=== PATIENT | male | born 1950 | race Caucasian/White ===

== ENCOUNTER 2024-09-17 10:26 | Inpatient (IN) | payer OTHER ==
[2024-09-17] MEDS ORDERED: ACETAMINOPHEN INJECTION 100 ML ONE (11:02)
[2024-09-17] MEDS: LACTATED RINGERS SOLUTION 1000 ML INFUS.BAG IV ONE ×2 (11:55→14:05)
[2024-09-17] MEDS: ACETAMINOPHEN 1000 MG/100 ML BAG IVPB ONE (11:55)
[2024-09-17 12:22] LABS: HEMATOCRIT 40.6 % (35.4-49); HEMOGLOBIN 13.2 GM/dL (11.7-16.9); MCH 30.9 pg (25.7-33.7); MCHC 32.6 g/dl (32.0-35.9); MEAN CELL VOLUME 94.8 fl (80-96); MEAN PLT VOLUME 8.1 fl (7.5-11.1); PLATELET COUNT 139 10^3/uL (134-434); RBC 4.28 M/mm3 (4.00-5.60); RDW 14.3 % (11.9-15.9); WHITE BLOOD COUNT 16.1 K/mm3 (4.0-10.0)
[2024-09-17 12:23] LABS: INR 1.05 (0.83-1.09); PROTHROMBIN TIME (PATIENT) 11.9 SEC (9.7-13.0)
[2024-09-17 12:25] LABS: ACTIVATED PTT 26.4 SECONDS (25.2-36.5)
[2024-09-17 12:33] LABS: POTASSIUM 3.9 mmol/L (3.5-5.1)
[2024-09-17 12:35] LABS: ALBUMIN 3.6 g/dl (3.4-5.0); CALCIUM 9.2 mg/dL (8.5-10.1)
[2024-09-17 12:36] LABS: BLOOD UREA NITROGEN 20.3 mg/dL (7-18); MAGNESIUM 1.7 mg/dL (1.8-2.4)
[2024-09-17 12:39] LABS: CREATININE 1.8 mg/dL (0.55-1.3); PHOSPHOROUS 1.8 mg/dL (2.5-4.9)
[2024-09-17 12:40] LABS: BILIRUBIN,TOTAL 0.6 mg/dL (0.2-1); TOT PROT 6.6 g/dl (6.4-8.2)
[2024-09-17 12:49] LABS: ANISOCYTOSIS 0; MACROCYTOSIS 0
[2024-09-17] MEDS ORDERED: MAGNESIUM SULFATE IN WATER 2 GM/50 ML IVPB IVPB ONE (13:10)
[2024-09-17] MEDS: MAGNESIUM SULFATE IN WATER 2 GM/50 ML IVPB IVPB ONE (13:13)
[2024-09-17 17:01] LABS: EPI CELLS 14 /uL (0-25.1); HYALINE CASTS 0 /uL (0-3.1); URINE APPEARANCE CLEAR; URINE BACTERIA >9,000 /uL (0-1359); URINE BILIRUBIN NEGATIVE (NEGATIVE); URINE COLOR YELLOW; URINE GLUCOSE (UA) NEGATIVE (NEGATIVE); URINE KETONE NEGATIVE (NEGATIVE); URINE LEUK ESTERASE TRACE (NEGATIVE); URINE NITRITE NEGATIVE (NEGATIVE); URINE PROTEIN NEGATIVE (NEGATIVE); URINE RBC 11 /uL (0-23.9); URINE UROBILINOGEN 0.2 mg/dL (0.2-1.0); URINE WBC 39 /uL (0-25.8)
[2024-09-17] MEDS: PIPERACILLIN/TAZOB 2.25 GM 2.25 GM in DEXTROSE 5%-WATER - 50 ML IVPB ONE (17:40)
[2024-09-17] MEDS: PIPERACILLIN/TAZOB 2.25 GM 2.25 GM/50 ML BAG IVPB ONE (17:45)
[2024-09-17] MEDS: LACTATED RINGERS SOLUTION 1,000 ML/1,000 ML INFUS.BAG IV SCH (17:55)
[2024-09-17] MEDS ORDERED: DOCUSATE SODIUM 100 MG CAPSULE (FP) PO PRN (20:13)
[2024-09-17] MEDS: PIPERACILLIN/TAZOB 3.375 GM 3.375 GM in DEXTROSE 5%-WATER - 50 ML IVPB SCH (22:15)
[2024-09-17] MEDS ORDERED: ACETAMINOPHEN 1000 MG/100 ML BAG IVPB PRN ×2 (23:43→23:45)
[2024-09-18 00:10] VITALS: BMI 26.4
[2024-09-18] MEDS ORDERED: PIPERACILLIN/TAZOB 3.375 GM 3.375 GM in DEXTROSE 5%-WATER - 50 ML IVPB SCH (01:00)
[2024-09-18] MEDS: levETIRAcetam 500 MG TABLET (FP) PO SCH (01:04)
[2024-09-18] MEDS: MIRTAZAPINE 15 MG TABLET (FP) PO SCH (01:04)
[2024-09-18 06:56] LABS: BASO % 0.1 % (0-2.0); EOS % 0.3 % (0-4.5); HEMATOCRIT 34.5 % (35.4-49); HEMOGLOBIN 11.4 GM/dL (11.7-16.9); LYMPH % 7.2 % (8-40); MCH 30.9 pg (25.7-33.7); MEAN CELL VOLUME 93.5 fl (80-96); MEAN PLT VOLUME 8.4 fl (7.5-11.1); MONO % 5.7 % (3.8-10.2); NEUT % 86.7 % (42.8-82.8); PLATELET COUNT 118 10^3/uL (134-434); RBC 3.69 M/mm3 (4.00-5.60); WHITE BLOOD COUNT 15.1 K/mm3 (4.0-10.0)
[2024-09-18 07:11] LABS: POTASSIUM 3.7 mmol/L (3.5-5.1)
[2024-09-18 07:14] LABS: CALCIUM 8.4 mg/dL (8.5-10.1)
[2024-09-18 07:15] LABS: BLOOD UREA NITROGEN 19.9 mg/dL (7-18); MAGNESIUM 2.3 mg/dL (1.8-2.4)
[2024-09-18 07:18] LABS: CREATININE 1.3 mg/dL (0.55-1.3)
[2024-09-18 07:19] LABS: BILIRUBIN,TOTAL 0.7 mg/dL (0.2-1)
[2024-09-18 07:24] LABS: TOT PROT 5.4 g/dl (6.4-8.2)
[2024-09-18 07:31] LABS: ALBUMIN 2.9 g/dl (3.4-5.0)
[2024-09-18] MEDS: CLOPIDOGREL BISULFATE 75 MG TABLET (FP) PO SCH (09:24)
[2024-09-18] MEDS: TAMSULOSIN HCL 0.4 MG CAP PO SCH (09:24)
[2024-09-18] MEDS: PANTOPRAZOLE 40 MG TABLET PO SCH (09:24)
[2024-09-18] MEDS: ASPIRIN COATED 81 MG TABLET.EC PO SCH (09:34)
[2024-09-18] MEDS ORDERED: HEPARIN NA (PORCINE) 5,000 UNITS/ML 1ML VIAL SQ SCH (14:00)
[2024-09-18] MEDS: PIPERACILLIN/TAZOB 3.375 GM 50 ML IVPB SCH (17:20)
[2024-09-18] MEDS: ATORVASTATIN CA 40 MG TABLET (FP) PO SCH (22:41)
[2024-09-19 08:35] LABS: BASO % 0.2 % (0-2.0); EOS % 1.5 % (0-4.5); HEMOGLOBIN 12.9 GM/dL (11.7-16.9); LYMPH % 14.5 % (8-40); MCH 31.2 pg (25.7-33.7); MEAN CELL VOLUME 94.3 fl (80-96); MEAN PLT VOLUME 8.5 fl (7.5-11.1); MONO % 9.2 % (3.8-10.2); NEUT % 74.6 % (42.8-82.8); PLATELET COUNT 124 10^3/uL (134-434); RBC 4.13 M/mm3 (4.00-5.60); RDW 14.2 % (11.9-15.9); WHITE BLOOD COUNT 10.3 K/mm3 (4.0-10.0)
[2024-09-19 09:03] LABS: POTASSIUM 4.1 mmol/L (3.5-5.1)
[2024-09-19 09:23] LABS: BLOOD UREA NITROGEN 15.6 mg/dL (7-18); CALCIUM 9.3 mg/dL (8.5-10.1)
[2024-09-19 09:24] LABS: ALBUMIN 3.1 g/dl (3.4-5.0)
[2024-09-19 09:25] LABS: CREATININE 1.1 mg/dL (0.55-1.3)
[2024-09-19 09:27] LABS: TOT PROT 6.2 g/dl (6.4-8.2)
[2024-09-19 09:29] LABS: BILIRUBIN,TOTAL 0.4 mg/dL (0.2-1)
[2024-09-19] MEDS: CEFTRIAXONE 1 G/50 ML PREMIX 50 ML IVPB SCH (15:04)
[2024-09-19] MEDS ORDERED: DOCUSATE SODIUM 100 MG CAPSULE (FP) PO PRN (18:49)
[2024-09-19] MEDS: LACTATED RINGERS SOLUTION 1,000 ML/1,000 ML INFUS.BAG IV SCH (21:14)
[2024-09-19] MEDS: levETIRAcetam 500 MG TABLET (FP) PO SCH (21:15)
[2024-09-19] MEDS: ATORVASTATIN CA 40 MG TABLET (FP) PO SCH (21:15)
[2024-09-19] MEDS: MIRTAZAPINE 15 MG TABLET (FP) PO SCH (21:15)
[2024-09-20 09:21] LABS: BASO % 0.2 % (0-2.0); EOS % 1.6 % (0-4.5); HEMATOCRIT 38.5 % (35.4-49); HEMOGLOBIN 13.2 GM/dL (11.7-16.9); MCH 31.8 pg (25.7-33.7); MCHC 34.3 g/dl (32.0-35.9); MEAN CELL VOLUME 92.5 fl (80-96); MEAN PLT VOLUME 8.5 fl (7.5-11.1); MONO % 9.7 % (3.8-10.2); NEUT % 70.5 % (42.8-82.8); PLATELET COUNT 157 10^3/uL (134-434); RBC 4.16 M/mm3 (4.00-5.60); RDW 13.9 % (11.9-15.9); WHITE BLOOD COUNT 8.6 K/mm3 (4.0-10.0)
[2024-09-20 09:33] LABS: CALCIUM 9.8 mg/dL (8.5-10.1)
[2024-09-20 09:34] LABS: ALBUMIN 3.4 g/dl (3.4-5.0); BLOOD UREA NITROGEN 14.7 mg/dL (7-18)
[2024-09-20 09:37] LABS: BILIRUBIN,TOTAL 0.4 mg/dL (0.2-1); TOT PROT 6.6 g/dl (6.4-8.2)
[2024-09-20] MEDS: CEFTRIAXONE 1 G/50 ML PREMIX 50 ML IVPB SCH (10:42)
[2024-09-20] MEDS: PANTOPRAZOLE 40 MG TABLET PO SCH (10:42)
[2024-09-20] MEDS: TAMSULOSIN HCL 0.4 MG CAP PO SCH (10:42)
[2024-09-20] MEDS: CLOPIDOGREL BISULFATE 75 MG TABLET (FP) PO SCH (10:42)
[2024-09-20] MEDS: ASPIRIN COATED 81 MG TABLET.EC PO SCH (10:42)
[2024-09-21 05:58] VITALS: TEMP 97.7
[2024-09-21 09:43] VITALS: BP 167/72; PULSE 61; RESP 17
== END 2024-09-21 14:40 | disposition home or self-care (01) | DRG 872 ==
LOC: JER 10:26 → JERBED 14:26 → J4W 20:22 → J5S 09-19 18:46
PROVIDERS: ADMIT Student in an Organized Health Care Education/Training Program; ATTEND Internal Medicine
DX: A41.9 Sepsis, unspecified organism (principal); N39.0 Urinary tract infection, site not specified; I69.354 Hemiplegia and hemiparesis following cerebral infarction affecting left non-dominant side; N17.9 Acute kidney failure, unspecified; G40.909 Epilepsy, unspecified, not intractable, without status epilepticus; C61 Malignant neoplasm of prostate; E78.5 Hyperlipidemia, unspecified
CPT/HCPCS: 0241U-QW; 36415; 70450-TC; 71045-TC-FY; 74176-TC; 76700-TC; 80053; 81003; 82550; 82962; 83690; 83735; 84100; 84484; 85025; 85610; 85730; 86850; 86900; 86901; 87040; 87086; 87186; 93005; 93010; 93306-TC; 99285-25; J0131

== ENCOUNTER 2025-01-05 14:59 | Emergency (ER) | payer OTHER ==
[2025-01-05 15:13] VITALS: TEMP 98.5; BMI 25.1
[2025-01-05 16:50] LABS: BASO % 0.4 % (0-2.0); EOS % 1.8 % (0-4.5); HEMATOCRIT 39.7 % (35.4-49); HEMOGLOBIN 13.6 GM/dL (11.7-16.9); LYMPH % 16.6 % (8-40); MCH 31.7 pg (25.7-33.7); MCHC 34.2 g/dl (32.0-35.9); MEAN CELL VOLUME 92.6 fl (80-96); MEAN PLT VOLUME 7.6 fl (7.5-11.1); MONO % 5.7 % (3.8-10.2); NEUT % 75.5 % (42.8-82.8); PLATELET COUNT 176 10^3/uL (134-434); RBC 4.29 M/mm3 (4.00-5.60); RDW 14.8 % (11.9-15.9); WHITE BLOOD COUNT 6.2 K/mm3 (4.0-10.0)
[2025-01-05 17:17] LABS: POTASSIUM 4.4 mmol/L (3.5-5.1)
[2025-01-05 17:19] LABS: CALCIUM 9.1 mg/dL (8.5-10.1)
[2025-01-05 17:20] LABS: ALBUMIN 3.9 g/dl (3.4-5.0); BLOOD UREA NITROGEN 17.5 mg/dL (7-18)
[2025-01-05 17:22] LABS: CREATININE 1.2 mg/dL (0.55-1.3)
[2025-01-05 17:24] LABS: BILIRUBIN,TOTAL 0.5 mg/dL (0.2-1); TOT PROT 6.8 g/dl (6.4-8.2)
[2025-01-05] MEDS ORDERED: ACETAMINOPHEN 325 MG TABLET (FP) ONE ×2 (18:11→19:02)
[2025-01-05] MEDS ORDERED: LIDOCAINE 4% PATCH TP ONE (18:11)
[2025-01-05 18:14] LABS: HIV INTERPRETATION NEGATIVE (NEGATIVE)
[2025-01-05] MEDS ORDERED: LIDOCAINE 5% TOPICAL PATCH ONE (19:03)
[2025-01-05] MEDS: LIDOCAINE 5% TOPICAL PATCH TP ONE (19:09)
[2025-01-05] MEDS: ACETAMINOPHEN 500 MG TABLET (FP) PO ONE (19:10)
[2025-01-05 21:39] VITALS: BP 118/61; PULSE 62; RESP 18
[2025-01-05] MEDS ORDERED: LIDOCAINE PATCH REMOVAL MC SCH (22:00)
== END 2025-01-05 21:39 | disposition home or self-care (01) ==
LOC: JER 14:59
DX: M54.2 Cervicalgia (principal); M25.511 Pain in right shoulder; R20.2 Paresthesia of skin; R07.89 Other chest pain
CPT/HCPCS: 36415; 71046-TC-FY; 72125-TC; 80053; 84484; 85025; 86803; 87389; 93005; 93010; 99285-25

== ENCOUNTER 2025-04-08 21:02 | Inpatient (IN) | payer OTHER ==
[2025-04-08 22:21] LABS: ABSOLUTE IMMATURE GRANULOCYTES 0.02 x10^3/uL (0.0-0.031); BASOPHILS # 0.01 x10^3/uL (0.01-0.08); EOSINOPHIL % 1.8 % (0.8-7.0); EOSINOPHILS # 0.13 x10^3/uL (0.04-0.54); HEMATOCRIT 39.6 % (40.1-51.0); HEMOGLOBIN 13.4 g/dL (13.7-17.5); MCHC 33.8 g/dl (32.3-36.5); MEAN CELL VOLUME 92.1 fl (79.0-92.2); MEAN PLT VOLUME 9.7 fl (9.4-12.4); MONOCYTE # 0.38 x10^3/uL (0.30-0.82); MONOCYTE % 5.3 % (5.3-12.2); PLATELET COUNT 203 x10^3/uL (163-337); RDW 13.8 % (12.2-16.6)
[2025-04-08 22:30] LABS: INR 1.11 (0.83-1.09); PROTHROMBIN TIME (PATIENT) 12.1 SEC (9.7-13.0)
[2025-04-08 22:32] LABS: ACTIVATED PTT 28.8 SECONDS (25.2-36.5)
[2025-04-08 22:38] LABS: PH,URINE 6.5 (5.0-8.0); URINE APPEARANCE CLEAR; URINE BILIRUBIN NEGATIVE (NEGATIVE); URINE COLOR YELLOW; URINE GLUCOSE (UA) NEGATIVE (NEGATIVE); URINE KETONE NEGATIVE (NEGATIVE); URINE LEUK ESTERASE NEGATIVE (NEGATIVE); URINE NITRITE NEGATIVE (NEGATIVE); URINE PROTEIN NEGATIVE (NEGATIVE)
[2025-04-08 22:40] LABS: CHLORIDE 108 mmol/L (98-107); POTASSIUM 4.1 mmol/L (3.5-5.1); SODIUM 142 mmol/L (136-145)
[2025-04-08 22:43] LABS: ALBUMIN 3.8 g/dl (3.4-5.0); ANION GAP 7 mmol/L (4-13); BLOOD UREA NITROGEN 14.6 mg/dL (7-18); CALCIUM 9.2 mg/dL (8.5-10.1); CO2 26 mmol/L (21-32); GLUCOSE,RANDOM 194 mg/dL (74-106)
[2025-04-08 22:46] LABS: CREATININE 1.2 mg/dL (0.55-1.3); SGOT/AST 17 U/L (15-37); SGPT/ALT 21 U/L (13-61)
[2025-04-08 22:47] LABS: LDL CHOLESTEROL (ONLY SJRH) 65 mg/dL (5-100)
[2025-04-08 22:48] LABS: BILIRUBIN,TOTAL 0.4 mg/dL (0.2-1); CHOLESTEROL 138 mg/dL (50-200); HDL CHOLESTEROL 60 mg/dL (40-60)
[2025-04-08 22:49] LABS: ALK PHOS 73 U/L (45-117)
[2025-04-09 03:18] VITALS: BMI 25.9
[2025-04-09 07:06] LABS: ABSOLUTE IMMATURE GRANULOCYTES 0.02 x10^3/uL (0.0-0.031); BASOPHILS # 0.01 x10^3/uL (0.01-0.08); EOSINOPHIL % 2.4 % (0.8-7.0); EOSINOPHILS # 0.17 x10^3/uL (0.04-0.54); HEMATOCRIT 36.4 % (40.1-51.0); HEMOGLOBIN 12.2 g/dL (13.7-17.5); MCHC 33.5 g/dl (32.3-36.5); MEAN CELL VOLUME 91.9 fl (79.0-92.2); MEAN PLT VOLUME 10.1 fl (9.4-12.4); MONOCYTE % 7.1 % (5.3-12.2); PLATELET COUNT 188 x10^3/uL (163-337); RDW 13.7 % (12.2-16.6)
[2025-04-09 07:27] LABS: POTASSIUM 4.2 mmol/L (3.5-5.1)
[2025-04-09 07:31] LABS: BLOOD UREA NITROGEN 13.8 mg/dL (7-18); CALCIUM 8.8 mg/dL (8.5-10.1)
[2025-04-09 07:34] LABS: CREATININE 0.9 mg/dL (0.55-1.3)
[2025-04-09] MEDS: ATORVASTATIN CA 40 MG TABLET (FP) PO SCH (21:18)
[2025-04-09] MEDS ORDERED: levETIRAcetam 500 MG TABLET (FP) PO SCH (22:00)
[2025-04-10 06:07] VITALS: RESP 20
[2025-04-10] MEDS: TAMSULOSIN HCL 0.4 MG CAP PO SCH (09:52)
[2025-04-10] MEDS: ASPIRIN COATED 81 MG TABLET.EC PO SCH (09:52)
[2025-04-10] MEDS ORDERED: CLOPIDOGREL BISULFATE 75 MG TABLET (FP) PO SCH (10:00)
[2025-04-10] MEDS ORDERED: levETIRAcetam 500 MG TABLET (FP) PO SCH ×2 (10:00)
[2025-04-10 10:46] VITALS: BP 143/66; PULSE 58; TEMP 97.5
== END 2025-04-10 11:07 | disposition home or self-care (01) | DRG 57 ==
LOC: JER 21:02 → JERBED 23:00 → J4W 04-09 02:22
PROVIDERS: ADMIT Family Medicine; ATTEND Family Medicine
DX: I69.30 Unspecified sequelae of cerebral infarction (principal); I69.354 Hemiplegia and hemiparesis following cerebral infarction affecting left non-dominant side; I10 Essential (primary) hypertension; E78.5 Hyperlipidemia, unspecified; N40.0 Benign prostatic hyperplasia without lower urinary tract symptoms; R79.89 Other specified abnormal findings of blood chemistry; Z85.46 Personal history of malignant neoplasm of prostate; R56.9 Unspecified convulsions; R20.2 Paresthesia of skin
CPT/HCPCS: 36415; 70450-TC; 70496-TC; 70498-TC; 70551-TC; 80048; 80053; 80061; 80177; 81003; 82550; 83036; 83880; 84443; 84484; 85025; 85610; 85730; 86850; 86900; 86901; 93005; 93010; 93306-TC; 97116-GP; 97161-GP; 99285-25; Q9967